=== PATIENT | female | born 1930 | race Caucasian/White ===

== ENCOUNTER → 2016-05-15 | Outpatient (CLI) | payer MEDICARE, BC ==
--- NOTE | 2016-05-15 11:44 | REP ---
CAROTID ULTRASOUND: Real-time ultrasound evaluation and duplex Doppler interrogation of the extracranial carotid vasculature is performed. There is mild plaquing and narrowing in both carotid bulbs extending into the internal and external carotid arteries. Luminal narrowing is less than 50%. There is no evidence of hemodynamically significant stenosis of either internal carotid artery. Normal flow velocities are seen. The vertebral arteries demonstrate normal direction of flow. RIGHT LEFT Peak systolic velocity ICA 73.5 cm/s 76.6 cm/s End diastolic velocity ICA 19.4 cm/s 25.0 cm/s Peak systolic velocity CCA 79 cm/s 74.6 cm/s Peak systolic velocity ECA 113.4 cm/s 74.5 cm/s ICA/CCA ratio 0.93 1.03 IMPRESSION: Bilateral luminal narrowing of the internal carotid arteries less than 50%. No evidence of hemodynamically significant stenosis. Essentially no change when compared to the prior study of 05/13/2015. Signed by Marty Campbell MD 05/15/2016 11:35 A
== END ==
LOC: M RAD 10:46
PROVIDERS: ATTEND Surgery Vascular Surgery
DX: I65.23 Occlusion and stenosis of bilateral carotid arteries (principal)

== ENCOUNTER → 2017-08-09 | Outpatient (REF) | payer MEDICARE, BC ==
[2017-08-09 18:07] LABS: ERYTHROCYTE SEDIMENTATION RATE 26 mm/hr (0-42)
[2017-08-09 18:31] LABS: FREE T4 1.08 NG/DL (0.76-1.46); RHEUMATOID FACTOR QUANT < 10.0 IU/ML (<15.0); TOTAL PROTEIN 6.8 GM/DL (6.4-8.2)
[2017-08-09 19:00] LABS: FOLATE 22.2 NG/ML; VITAMIN B12 LEVEL 399 PG/ML
[2017-08-09 19:18] LABS: ESTIMATED AVERAGE GLUCOSE 120 MG/DL (60-110); HEMOGLOBIN A1c 5.8 %
[2017-08-13 11:03] LABS: ALBUMIN 4.08 GM/DL (3.29-5.55); ALPHA-1-GLOBULIN % 5.5 % (2.9-4.9); ALPHA-1-GLOBULINS 0.37 GM/DL (0.17-0.41); ALPHA-2-GLOBULINS 0.93 GM/DL (0.42-0.99); ALPHA-2-GLOBULINS % 13.7 % (7.1-11.8); BETA-1-GLOBULINS 0.48 GM/DL (0.28-0.60); BETA-1-GLOBULINS % 7.1 % (4.7-7.2); BETA-2-GLOBULINS 0.36 GM/DL (0.19-0.55); BETA-2-GLOBULINS % 5.3 % (3.2-6.5); GAMMA GLOBULIN % 8.4 % (11.1-18.8); GAMMA GLOBULINS 0.57 GM/DL (0.65-1.58)
[2017-08-14 09:06] LABS: DRVV SCREEN 38.3 SEC
[2017-08-14 09:07] LABS: PTT LUPUS TYPE ANTICOAG SCREEN 0.9 (0-1.2)
[2017-08-16 00:07] LABS: ANTINUCLEAR ANTIBODIES DIRECT Negative (Negative); VITAMIN B1 LEVEL WHOLE BLOOD 98.8 nmol/L (66.5-200.0); VITAMIN B6,PYRIDOXAL PHOSPHATE 39.8 ug/L (2.0-32.8); VITAMIN E(ALPHA TOCOPHEROL) 17.2 mg/L (9.0-29.0)
== END ==
LOC: M LABNEURO 12:46
DX: G62.9 Polyneuropathy, unspecified (principal); Z79.899 Other long term (current) drug therapy
CPT/HCPCS: 82746

== ENCOUNTER 2018-08-08 21:27 | Emergency (ER) | payer MEDICARE, BC ==
[~2018-08-08] VITALS: Ht 170.2 cm; Wt 72.7 kg
[~2018-08-08 21:27] MED LIST: ALPR0.5T3 PO; ATOR1TAB19 PO; BENT10CA PO; HYDR-3713 PO; MONT10TA2 PO; OLOP0.1D OP; ROPI0.5T PO; TIZA2TA PO; VITA50005 PO; ZOLP5TAB PO
[2018-08-08] MEDS ORDERED: NS 500 ML IV ONE (21:45)
[2018-08-08] MEDS ORDERED: MORPHINE 4 MG/ML 1ML VIAL/SYRINGE (J2270) IV PRN (21:45)
[2018-08-08 22:26] LABS: BASO % 0.4 % (0.0-1.0); EOS # 0.1 10^3/uL (0.0-0.50); EOS % 1.2 % (0.0-3.0); HEMATOCRIT 34.8 % (36.0-47.0); HEMOGLOBIN 11.1 g/dl (12.0-15.5); LYMPH # 1.4 10^3/uL (1.5-4.5); LYMPH % 17.9 % (24.0-44.0); MEAN CORPUSCULAR HEMOGLOBIN 28.8 pg (27.0-33.0); MEAN CORPUSCULAR HGB CONC 31.9 g/dl (32.0-36.5); MEAN CORPUSCULAR VOLUME 90.4 fl (80.0-96.0); MONO # 0.7 10^3/uL (0.0-0.8); MONO % 8.7 % (0.0-5.0); NEUTROPHILS # 5.5 10^3/uL (1.8-7.7); NEUTROPHILS % 71.2 % (36.0-66.0); PLATELET COUNT, AUTOMATED 190 10^3/uL (150-450); RED BLOOD COUNT 3.85 10^6/uL (4.00-5.40); WHITE BLOOD COUNT 7.7 10^3/uL (4.0-10.0)
[2018-08-08 22:37] LABS: INR 0.99; PROTHROMBIN TIME 13.2 SECONDS (12.1-14.4)
[2018-08-08 22:38] LABS: PARTIAL THROMBOPLASTIN TIME 23.7 SECONDS (25.4-37.6)
--- NOTE | 2018-08-08 22:39 | REPVR ---
EXAM: CT Head Without Contrast EXAM DATE/TIME: 08/08/2018 9:55 PM CLINICAL HISTORY: 88 years old, female; Injury or trauma; Fall; Initial encounter; Blunt trauma (contusions or hematomas); Consciousness not specified TECHNIQUE: Imaging protocol: Axial computed tomography images of the head/brain without contrast. Radiation optimization: All CT scans at this facility use at least one of these dose optimization techniques: automated exposure control; mA and/or kV adjustment per patient size (includes targeted exams where dose is matched to clinical indication); or iterative reconstruction. COMPARISON: No relevant prior studies available. FINDINGS: Brain: There is no acute intracranial abnormality. Mild prominence of ventricles and sulci representing volume loss. Mild small vessel ischemic changes are seen. There is no mass, midline shift, or mass effect. Campbell-white matter differentiation is preserved. There is no evidence of hemorrhage. There is no extra-axial fluid collection. Basal cisterns are patent. Ventricles: See Brain Finding. Bones/joints: The visualized osseous structures are unremarkable. Sinuses: Visualized sinuses are clear. Mastoid air cells: Mastoid air cells are clear. Soft tissues: Unremarkable. IMPRESSION: 1. Mild volume loss and small vessel ischemic changes. . 2. No acute intracranial abnormality. Electronically signed by: Linda Regalado On 08/08/2018 22:38:59 PM
--- NOTE | 2018-08-08 22:43 | REPVR ---
EXAM: CT Cervical Spine Without Contrast EXAM DATE/TIME: 08/08/2018 9:55 PM CLINICAL HISTORY: 88 years old, female; Injury or trauma; Fall; Initial encounter; Blunt trauma TECHNIQUE: Imaging protocol: Axial computed tomography images of the cervical spine without contrast. Coronal and sagittal reformatted images were created and reviewed. Radiation optimization: All CT scans at this facility use at least one of these dose optimization techniques: automated exposure control; mA and/or kV adjustment per patient size (includes targeted exams where dose is matched to clinical indication); or iterative reconstruction. COMPARISON: CT Spine,cervical w/o contrast 08/20/2017 6:23 AM FINDINGS: Vertebrae: No acute fracture. Normal alignment. 5.1 mm round sclerotic focus in the C6 and T1 vertebral study. Mild DJD. Diffuse demineralization of the bones. Discs/Spinal canal/Neural foramina: No spinal stenosis. No neural foraminal narrowing. Soft tissues: Unremarkable. Lungs: Lung apices are normal. IMPRESSION: No acute findings. Electronically signed by: Linda Regalado On 08/08/2018 22:42:42 PM
--- NOTE | 2018-08-08 22:46 | REPVR ---
EXAM: CT Maxillofacial Without Contrast EXAM DATE/TIME: 08/08/2018 9:55 PM CLINICAL HISTORY: 88 years old, female; Injury or trauma; Fall; Initial encounter; Blunt trauma (contusions or hematomas); Forehead; Additional info: Fall, facial pain TECHNIQUE: Imaging protocol: Axial computed tomography images of the face without intravenous contrast. Coronal and sagittal reformatted images were created and reviewed. Radiation optimization: All CT scans at this facility use at least one of these dose optimization techniques: automated exposure control; mA and/or kV adjustment per patient size (includes targeted exams where dose is matched to clinical indication); or iterative reconstruction. COMPARISON: MRI ORBIT FACE NECK W/O FOLL W 08/07/2014 3:05 PM FINDINGS: Orbits: No acute intraorbital abnormality. Globes are unremarkable. Sinuses: Normal. No air-fluid levels. Bones/joints: Nondisplaced fracture of the right zygomatic arch, without any soft tissue swelling, age-indeterminate likely old. Further evaluation with point of tenderness is recommended. Soft tissues: No significant facial soft tissue swelling. IMPRESSION: Nondisplaced fracture of the right zygomatic arch, without any soft tissue swelling, age-indeterminate likely old. Further evaluation with point of tenderness is recommended. Electronically signed by: Linda Regalado On 08/08/2018 22:46:24 PM
[2018-08-08 22:53] LABS: BLOOD UREA NITROGEN 18 MG/DL (7-18); CALCIUM LEVEL 7.9 MG/DL (8.8-10.2); CARBON DIOXIDE LEVEL 32 MEQ/L (21-32); CHLORIDE LEVEL 104 MEQ/L (98-107); CPK CREATINE PHOSPHOKINASE 108 U/L (26-192); GLOMERULAR FILTRATION RATE > 60.0 (>32); GLUCOSE, FASTING 100 MG/DL (70-100); MB/CK RELATIVE INDEX 1.85 (< OR =4); POTASSIUM SERUM 4.2 MEQ/L (3.5-5.1); SODIUM LEVEL 140 MEQ/L (136-145); TROPONIN I < 0.02 NG/ML (< 0.10)
[2018-08-09] MEDS ORDERED: LIDOCAINE 1% MDV 20ML VIAL SC ONE (00:30)
[2018-08-09] MEDS ORDERED: ACETAMINOPHEN TAB 650MG DOSE (2X325MG) PO ONE (02:00)
[2018-08-09] MEDS ORDERED: IBUPROFEN 600 MG TAB PO ONE (02:00)
[2018-08-09 02:35] VITALS: BP 128/80
--- NOTE | 2018-08-09 08:55 | REP ---
Left wrist: Two views. History: Post reduction. Findings: AP and lateral views of the left wrist obtained through plaster splint material demonstrate improved alignment of the comminuted distal radial and ulnar fractures. There is dorsal subluxation of the hand and wrist at the level of the proximal intercarpal row, question intercarpal subluxation. No definite fracture. Electronically Signed by Gerald Copeland MD 08/09/2018 09:27 A
--- NOTE | 2018-08-09 09:02 | REP ---
Left humerus: Two views. History: Injury in a fall. Findings: The two views presented are both AP radiographs and only one of these includes the shoulder and the other a portion of the elbow. There is evidence of an impacted fracture of the proximal humerus on the left although this may be old. It is less than optimally seen. 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 Osteoporosis is noted. No other evidence of fractures seen. There is soft tissue fullness in the hilus of the lung on the left. Impression: Osteoporosis. Question old fracture of the proximal humerus. Recommend left shoulder series. Fullness in the left hilus. Recommend chest x-ray. Electronically Signed by Gerald Copeland MD 08/09/2018 09:27 A
--- NOTE | 2018-08-09 09:03 | REP ---
Left forearm: Three views. History: Injury in a fall. Findings: There is diffuse osteoporosis. Comminuted impacted and somewhat displaced distal radial and ulnar metaphyseal fractures are noted. There is dorsal displacement, slight override, and apex volar angulation. There is also dorsal subluxation of the middle carpal row relative to the proximal row on the lateral radiograph. It is not clear whether this is chronic or acute. No carpal fracture or metacarpal fracture is appreciated. This may be a chronic finding. Impression: Comminuted impacted and displaced distal radial and distal ulnar metaphyseal fractures. Intercarpal subluxation may be chronic. Osteoporosis. Electronically Signed by Gerald Copeland MD 08/09/2018 09:27 A
--- NOTE | 2018-08-09 09:04 | REP ---
LEFT HIP, AP PELVIS, FOUR VIEWS: HISTORY: Fall. The patient is status post right total hip replacement. There is no acute fracture or dislocation. There is mild narrowing of the left hip joint space with associated sclerosis. IMPRESSION: There is no acute fracture or dislocation. Electronically Signed by Duane Sigala MD 08/09/2018 09:17 A
--- NOTE | 2018-08-09 15:34 | ED PDOC ---
Post-Departure Follow-Up dr patterson and [facility] - ortho faxed left humerus, left radius to fu on reports. Teodoro Padilla MD Aug 09, 2018 15:34
--- NOTE | 2018-08-09 15:35 | ED PDOC ---
Post-Departure Follow-Up certified letter sent to pt r formal humeral xray - ? lung mass? needs fu gabg Teodoro Herrmann MD Aug 09, 2018 15:35
--- NOTE | 2018-08-09 18:11 | CR ---
DATE OF CONSULTATION: 08/09/2018 CONSULTING PHYSICIAN: Dr. Darrel Velazquez REASON CONSULTATION: Left wrist fracture. CHIEF COMPLAINT: Left wrist pain. HISTORY OF PRESENT ILLNESS: Corry Castelan is an 88-year-old [id number] female who sustained a mechanical fall to an outstretched left upper extremity earlier today, resulting in immediate pain and deformity about the left wrist. She was brought to the emergency department and found to have a displaced distal radius and ulna fracture, and orthopedics was consulted for reduction. The patient denied any antecedent chest pain, shortness of breath, dizziness, or headaches prior to her fall. She states that she tripped while walking in her home. She lives in a long-term; therefore, is not independent in all of her activities of daily living (ADLs). She denies any associated numbness, tingling, or burning sensations about her left upper extremity and no other complaints. PAST MEDICAL HISTORY: Significant for: 1. Dementia/ 2. Chronic obstructive pulmonary disease (COPD). 3. Vitamin D deficiency. 4. Hypercholesterolemia. MEDICATIONS: [place], alprazolam, atorvastatin, Bentyl, vitamin D, montelukast, olopatadine eyedorps, ropinirole, tizanidine, and zolpidem. ALLERGIES: AMOXICILLIN, CLARITHROMYCIN, DOXYCYCLINE, CYMBALTA, GABAPENTIN, and TRAMADOL. PAST SURGICAL HISTORY: Significant for: 1. Left total hip arthroplasty. 2. Hysterectomy. 3. Cholecystectomy. 4. Appendectomy. 5. Bilateral carotid endarterectomy. FAMILY HISTORY: Noncontributory. SOCIAL HISTORY: Patient is a nonsmoker. She lives in a long-term in [place]. She does not drink or use illicit drugs. REVIEW OF SYSTEMS: A 14-point review of systems was reviewed and unremarkable. PHYSICAL EXAMINATION: VITAL SIGNS: Temperature 98.3, heart rate 77, blood pressure 147/67, respiratory rate 16, pulse oximetry 95% on room air. GENERAL: This is a well-nourished female. Appears stated age in no acute distress. NEUROLOGIC: She is awake, alert, and oriented to person, place, and time. She has she has intact sensory and motor function in her left upper extremity radial, median, ulnar, and posterior interosseous nerve (PIN) distributions . CARDIOVASCULAR: She has 2+ radial pulse and brisk capillary refill in all digits of the left upper extremity. MUSCULOSKELETAL: Focused physical exam of the left upper extremity demonstrates obvious deformity about the left wrist. No open wounds or abrasions. Distal radius with significant dorsal displacement of the distal radius. She is able to independently flex and extend all of her digits. There is no wrist motion secondary to pain and deformity. She has no associated elbow tenderness. She is maximally tender about the distal aspect of the radius and ulna. RADIOGRAPHY: Plain radiographs demonstrate a displaced comminuted fracture of the metadiaphysis of the distal radius and metaphysis of the ulna with significant apex volar angulation, greater than 40 degrees. ASSESSMENT: This is an 88-year-old female with a significantly displaced distal radius and ulna fracture. PLAN: I discussed the patient the nature of her injury and the unstable nature of her fracture pattern and the possibility that this likely is unstable and may ultimately require surgical stabilization; however, for a temporizing measure, I recommended a closed reduction and splinting to restore length and alignment and to potentially be able to avoid operative treatment if we were able to maintain reduction; however, she has many risk factors given the degree of comminution, her osteoporosis, her age, and associated ulna fracture. The patient expressed understanding and provided written informed consent for a left wrist closed reduction and splinting. PROCEDURE NOTE: After the skin left of the wrist was carefully prepped, I injected 5 mL of 1% lidocaine into the fracture site, performing a hematoma block under mini C-arm fluoroscopic guidance for pain control. The patient was then placed into finger traps with 10 pounds of traction for approximately 10 minutes, which served to restore the length of her distal radius. I then placed the patient into a well-padded sugar-tong splint and performed a closed reduction, achieving a near-anatomic reduction of radial height and inclination with sabianist of the volar tilt to neutral. Postreduction mini C-arm fluoroscopic images demonstrated acceptable reduction. The patient tolerated the procedure well. POSTPROCEDURE PLAN: The patient will be discharged home from emergency department today. She will followup in the office next week for repeat radiographs in splint to assess for maintenance of reduction. The patient expressed understanding and agreed with the plan. All questions were answered. JUAN
--- NOTE | 2018-08-09 19:45 | ECGEPIP ---
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
--- NOTE | 2018-08-10 06:34 | ED PDOC ---
Post-Departure Follow-Up certified letter sent to pt re formal read of ct max-fac - unclear if she is luna re of zygomatic fx. also faxed to dr greene. also given to ed credit charge authorizer to contact pt Teodoro Padilla MD Aug 10, 2018 06:34
== END 2018-08-09 02:37 | disposition home or self-care (01) ==
LOC: EDBD 21:27 → M ED 21:27
DX: S52.592A Other fractures of lower end of left radius, initial encounter for closed fracture (principal); S52.692A Other fracture of lower end of left ulna, initial encounter for closed fracture; R93.7 Abnormal findings on diagnostic imaging of other parts of musculoskeletal system; W01.0XXA Fall on same level from slipping, tripping and stumbling without subsequent striking against object, initial encounter; Y92.129 Unspecified place in nursing home as the place of occurrence of the external cause; M81.0 Age-related osteoporosis without current pathological fracture; F03.90 Unspecified dementia, unspecified severity, without behavioral disturbance, psychotic disturbance, mood disturbance, and anxiety; J44.9 Chronic obstructive pulmonary disease, unspecified; E55.9 Vitamin D deficiency, unspecified; E78.5 Hyperlipidemia, unspecified; Z79.899 Other long term (current) drug therapy; Z88.0 Allergy status to penicillin; Z88.1 Allergy status to other antibiotic agents; Z88.8 Allergy status to other drugs, medicaments and biological substances; Z88.5 Allergy status to narcotic agent
CPT/HCPCS: 25605; 70450; 70486; 72125; 73060; 73090; 73100; 73502; 80048; 82550; 82553; 84484; 85025; 85610; 85730; 86850; 86900; 86901; 93005; 96374; 99284; J2270

== ENCOUNTER → 2019-01-07 | Outpatient (CLI) | payer MEDICARE, BC ==
--- NOTE | 2019-01-07 13:59 | REP ---
CT of the abdomen and pelvis without IV and oral contrast for abdominal aortic aneurysm: There are no comparisons. The proximal abdominal aorta at the diaphragm measures 2.6 cm transversely by 2.7 cm AP. The proximal abdominal aorta above the renal arteries measures tip of 4 cm transversely by 2.5 cm AP. The abdominal aorta below the renal arteries measures 1.7 cm transversely by 1.7 cm AP. The abdominal aorta above the bifurcation measures 1.7 cm transversely by 1.4 cm AP. There is callous some fine atheromatous plaque throughout the abdominal aorta. There is no abdominal aortic aneurysm. The visualized lower lung hogan demonstrate occasional curvilinear scarring but are otherwise unremarkable. Cardiac size appears upper normal. The unenhanced hepatic parenchyma is unremarkable. There are multiple hepatic calcified granulomas. There are surgical clips in the gallbladder fossa. The pancreas is unremarkable. There are calcified granulomas in the spleen, the spleen is otherwise unremarkable. The adrenals and kidneys are unremarkable. The bowel and mesentery are unremarkable. Pelvis: The appendix is unremarkable. There is a hysterectomy. The vaginal cuff and adnexa are obscured from beam hardening artifact arising from a right arthroplasty. The pelvic bowel loops are unremarkable. Impression: There is no abdominal aortic aneurysm. There is calcified atheroma throughout the abdominal aorta. Cholecystectomy and hysterectomy. Right hip arthroplasty. Electronically Signed by Marty Hughes MD 01/07/2019 01:51 P
== END ==
LOC: M RAD 10:53
PROVIDERS: ATTEND Surgery Vascular Surgery
DX: I70.0 Atherosclerosis of aorta (principal); Z90.49 Acquired absence of other specified parts of digestive tract; Z90.710 Acquired absence of both cervix and uterus; Z96.641 Presence of right artificial hip joint

== ENCOUNTER 2020-12-15 10:56 | Emergency (ER) | payer MEDICARE, BC ==
[~2020-12-15] VITALS: Ht 170.2 cm; Wt 75.0 kg
[~2020-12-15 10:56] MED LIST changes: +MONT10TA10 PO; -MONT10TA2 PO; -ROPI0.5T PO; +ROPI0.5T3 PO
[2020-12-15] MEDS ORDERED: BUSP15TA47 (11:23)
[2020-12-15] MEDS ORDERED: ALBU8.5H (11:23)
[2020-12-15] MEDS ORDERED: COLA100C5 PO (11:23)
[2020-12-15] MEDS ORDERED: PRESCAP PO (11:23)
[2020-12-15] MEDS ORDERED: SERT50TA29 (11:23)
[2020-12-15] MEDS ORDERED: HYDR-643 (11:23)
[2020-12-15] MEDS ORDERED: LIDO1PAD (11:23)
[2020-12-15] MEDS ORDERED: DICY10CA13 (11:23)
[2020-12-15] MEDS ORDERED: MOME50SP (11:23)
[2020-12-15] MEDS ORDERED: CBD OIL PO (11:23)
[2020-12-15] MEDS ORDERED: LORAPOW30 (11:23)
[2020-12-15] MEDS ORDERED: ESOM40CA35 (11:23)
[2020-12-15] MEDS ORDERED: ERGO500029 (11:23)
[2020-12-15] MEDS ORDERED: CYCL-707 (11:23)
[2020-12-15] MEDS ORDERED: SPIR1CAP (11:23)
--- NOTE | 2020-12-15 12:42 | REPVR ---
PROCEDURE INFORMATION: Exam: CT Cervical Spine Without Contrast Exam date and time: 12/15/2020 12:14 PM Age: 89 years old Clinical indication: Injury or trauma; Fall; Blunt trauma; Additional info: Fall on cement floor TECHNIQUE: Imaging protocol: Computed tomography images of the cervical spine without contrast. Radiation optimization: All CT scans at this facility use at least one of these dose optimization techniques: automated exposure control; mA and/or kV adjustment per patient size (includes targeted exams where dose is matched to clinical indication); or iterative reconstruction. COMPARISON: CT Spine,cervical w/o contrast 08/08/2018 9:43 PM FINDINGS: Bones/joints: No acute fracture. Normal alignment. There is a stable dense focus within the C6 body. Discs/Spinal canal/Neural foramina: No significant disc protrusion. There is multilevel facet hypertrophy. No severe spinal canal stenosis. No significant neural foraminal narrowing. Thyroid: The thyroid gland is heterogeneous. Lungs: Lung apices are normal. Soft tissues: Unremarkable. IMPRESSION: No acute fracture. Electronically signed by: Christen Mckinley On 12/15/2020 12:42:11 PM
--- NOTE | 2020-12-15 12:43 | REPVR ---
PROCEDURE INFORMATION: Exam: CT Head Without Contrast Exam date and time: 12/15/2020 12:14 PM Age: 89 years old Clinical indication: Injury or trauma; Fall; Blunt trauma (contusions or hematomas); Additional info: Fall on cement floor TECHNIQUE: Imaging protocol: Computed tomography of the head without contrast. Radiation optimization: All CT scans at this facility use at least one of these dose optimization techniques: automated exposure control; mA and/or kV adjustment per patient size (includes targeted exams where dose is matched to clinical indication); or iterative reconstruction. COMPARISON: CT Head without contrast 08/08/2018 9:43 PM FINDINGS: Brain: There is no acute intracranial hemorrhage or mass effect. Mild to moderate diffuse volume loss is within the range of normal for patient age. There are small vessel ischemic changes within the periventricular and subcortical white matter, but the normal tesfaye/white matter delineation is maintained. Cerebral ventricles: No ventriculomegaly. Paranasal sinuses: Visualized sinuses are unremarkable. No fluid levels. Mastoid air cells: Visualized mastoid air cells are well aerated. Bones/joints: Unremarkable. No acute fracture. Soft tissues: Unremarkable. IMPRESSION: No acute hemorrhage or calvarial fracture. Electronically signed by: Christen Mckinley On 12/15/2020 12:43:26 PM
--- NOTE | 2020-12-15 12:46 | REP ---
INDICATION: fall on cement floor. COMPARISON: Comparison left shoulder radiographs August 08, 2018. TECHNIQUE: Three views of the left shoulder are provided FINDINGS: . There is diffuse osteopenia. The left glenohumeral and acromioclavicular joints are normally aligned. No acute fracture or subluxation is seen. Mild osteoarthritic hypertrophy is seen at the AC joint. There is a surgical clip in the soft tissues of the neck on the left. The visualized left hemithorax structures are unremarkable. IMPRESSION: No traumatic abnormality noted. Diffuse osteopenia. Mild osteoarthritis at the AC joint. <Electronically signed by Ozzie Copeland > 12/15/20 [id number]
--- NOTE | 2020-12-15 12:48 | REP ---
INDICATION: fall on cement floor. COMPARISON: Comparison left wrist radiographs are from August 09, 2018. TECHNIQUE: Four views of the left wrist. FINDINGS: There is a acute obliquely oriented fracture through the distal radial diametaphyseal junction. Old posttraumatic deformity is seen in the distal radial metaphysis. There is also an acute fracture of the distal ulna. There appears to be old posttraumatic deformity of the distal ulna as well. There is associated soft tissue swelling. Diffuse osteoporosis is noted. There is osteoarthritis in the middle carpal row and there is partial collapse of the carpus again seen unchanged. This is degenerative. IMPRESSION: Complex findings with acute fractures of the distal radius and distal ulna. Old posttraumatic deformity is seen of the distal radius and ulna as well. There is degenerative change at the wrist with degenerative collapse of the proximal carpal row diffuse osteopenia. <Electronically signed by Ozzie Copeland > 12/15/20 [id number]
[2020-12-15] MEDS ORDERED: MORPHINE 2 MG/ML 1ML VIAL (J2270) IV ONE ×2 (13:45→15:45)
[2020-12-15] MEDS ORDERED: BOOSTRIX/ADACEL VACCINE (DIPHTH/PERTUSS/ACELL/TETANUS) 0.5ML SYR IM ONE (13:45)
[2020-12-15] MEDS ORDERED: LIDOCAINE 1% MDV 20ML VIAL INFIL ONE (13:45)
[2020-12-15] MEDS ORDERED: ONDANSETRON 4MG/2ML VIAL IV ONE (13:45)
--- NOTE | 2020-12-15 14:14 | REPVR ---
PROCEDURE INFORMATION: Exam: CT Maxillofacial Without Contrast Exam date and time: 12/15/2020 2:00 PM Age: 89 years old Clinical indication: Injury or trauma; Fall; Blunt trauma (contusions or hematomas); Ocular (eye or eyeball); Left; Additional info: Fall, lac L eyebrow TECHNIQUE: Imaging protocol: Computed tomography images of the face without contrast. Radiation optimization: All CT scans at this facility use at least one of these dose optimization techniques: automated exposure control; mA and/or kV adjustment per patient size (includes targeted exams where dose is matched to clinical indication); or iterative reconstruction. COMPARISON: CT Maxilofacial w/out contrast 08/08/2018 9:43 PM FINDINGS: Orbital cavity: There have been bilateral intraocular lens replacements likely related to cataract surgery. There is no exophthalmos. No retrobulbar hematoma or mass. Bones/joints: No evidence of acute fracture. Paranasal sinuses: There is minimal mucosal thickening in ethmoid and sphenoid sinuses and in right sphenoid ethmoidal recess. Soft tissues: There is laceration along the lateral superior aspect of the left orbit. IMPRESSION: No evidence of acute fracture. Electronically signed by: Yecenia Pak On 12/15/2020 14:14:12 PM
[2020-12-15 14:30] LABS: BASO % 0.3 % (0.0-1.0); EOS % 0.1 % (0.0-3.0); HEMATOCRIT 38.4 % (36.0-47.0); HEMOGLOBIN 11.9 g/dl (12.0-15.5); LYMPH # 0.5 10^3/uL (1.5-5.0); LYMPH % 7.4 % (24.0-44.0); MEAN CORPUSCULAR HEMOGLOBIN 27.7 pg (27.0-33.0); MEAN CORPUSCULAR VOLUME 89.5 fl (80.0-96.0); MONO # 0.4 10^3/uL (0.0-0.8); NEUTROPHILS # 6.2 10^3/uL (1.5-8.5); NEUTROPHILS % 85.6 % (36.0-66.0); PLATELET COUNT, AUTOMATED 201 10^3/uL (150-450); RED BLOOD COUNT 4.29 10^6/uL (4.00-5.40); WHITE BLOOD COUNT 7.2 10^3/uL (4.0-10.0)
[2020-12-15 14:55] LABS: ALBUMIN 3.6 GM/DL (3.2-5.2); ALT/SGPT 23 U/L (12-78); BILIRUBIN,DIRECT 0.1 MG/DL (0.0-0.2); BILIRUBIN,TOTAL 0.3 MG/DL (0.2-1.0); BLOOD UREA NITROGEN 12 MG/DL (7-18); CALCIUM LEVEL 8.5 MG/DL (8.8-10.2); CARBON DIOXIDE LEVEL 28 MEQ/L (21-32); CHLORIDE LEVEL 107 MEQ/L (98-107); CPK CREATINE PHOSPHOKINASE 183 U/L (26-192); CREATININE FOR GFR 0.68 MG/DL (0.55-1.30); GLOMERULAR FILTRATION RATE > 60.0 (>32); GLUCOSE, FASTING 103 MG/DL (70-100); LIPASE 90 U/L (73-393); MB/CK RELATIVE INDEX 1.64 (< OR =4); POTASSIUM SERUM 3.9 MEQ/L (3.5-5.1); SODIUM LEVEL 140 MEQ/L (136-145); TOTAL PROTEIN 6.6 GM/DL (6.4-8.2); TROPONIN I < 0.02 NG/ML (< 0.10)
--- NOTE | 2020-12-15 15:23 | REP ---
INDICATION: fall, ttp. COMPARISON: None. TECHNIQUE: Four views of the left knee, sunrise view not included.. FINDINGS: Four views of the left knee demonstrate diffuse osteopenia. Vascular calcifications noted. No fracture or subluxation is seen. No opaque foreign body noted. IMPRESSION: No fracture seen. Diffuse osteopenia. Vascular calcification. <Electronically signed by Ozzie Copeland > 12/15/20 [id number]
--- NOTE | 2020-12-15 15:29 | REP ---
INDICATION: Abdominal Pain. COMPARISON: None. TECHNIQUE: Frontal view chest, cross-table lateral in supine films abdomen and pelvis. The study is submitted for interpretation at 3:13 p.m.. FINDINGS: There is no evidence of free intraperitoneal air. There appear to be a few mildly dilated small bowel loops in the mid abdomen in a nonspecific pattern. Scattered metallic clips are present. There are mild degenerative changes of the spine. There is metallic prosthesis of the right hip. No infiltrate is seen in either lung. The heart is not enlarged and there is mild atherosclerotic calcification of the thoracic aorta. IMPRESSION: No evidence of free intraperitoneal air. Mildly dilated small bowel loops in the mid abdomen with a nonspecific bowel gas pattern. <Electronically signed by Marty Campbell > 12/15/20 [id number]
--- NOTE | 2020-12-15 16:28 | CR.PDOC ---
General Date of Consultation: Dec 15, 2020 Referring Provider: JULIANNA MILLER PA-C Consultation REASON FOR CONSULTATION/CHIEF COMPLAINT: L wrist pain s/p fall. HISTORY OF PRESENT ILLNESS: 89 yo F s/p fall and landed on L wrist. + head trauma, no LOC. Unable to range wrist and hand and BIBA for evaluation. ALLERGIES: Please see below. HOME MEDICATIONS: Please see below. PAST MEDICAL HISTORY: 1. HTN. 2. Previous L wrist Fx PAST SURGICAL HISTORY: N/A SOCIAL HISTORY: Marital status and/or living arrangements: Lives alone, sister local. Children: x 3. Employment: Tobacco use: ETOH: Illicit drug use: IV drug use: Other relevant social factors: REVIEW OF SYSTEMS: CONSTITUTIONAL: HEENT: Head laceration CARDIOVASCULAR: . RESPIRATORY: . GENITOURINARY: . MUSCULOSKELETAL: L wrist pain GASTROINTESTINAL: . SKIN: . NEUROLOGICAL: . PSYCHIATRIC: . ENDOCRINE: . HEMATOLOGIC/LYMPHATIC: . ALLERGIC/IMMUNOLOGIC: . PHYSICAL EXAMINATION: VITAL SIGNS: Please see below. GENERAL APPEARANCE: AAOx3 HEENT: . RESPIRATORY: . CARDIOVASCULAR: . ABDOMEN: . EXTREMITIES: L wrist - + deformity to L wrist, limited ROM secondary to pain. NEUROLOGICAL: AIN/PIN/U intact PSYCHIATRIC: . LABORATORY DATA: Please see below. ASSESSMENT/PLAN: 1. R DR ulrich Fx --> closed reduction in ED NWB in sling PO analgesia f/u 10-14 days in office Vital Signs/I&O Vital Signs Date Time Temp Pulse Resp B/P (MAP) Pulse Ox O2 Delivery O2 Flow Rate FiO2 12/15/20 15:49 97.9 84 18 184/79 95 Room Air Laboratory Data Labs 24H Laboratory Tests 2 12/15/20 13:54: Immature Granulocyte % (Auto) 0.6, Neutrophils (%) (Auto) 85.6H, Lymphocytes (%) (Auto) 7.4L, Monocytes (%) (Auto) 6.0, Eosinophils (%) (Auto) 0.1, Basophils (%) (Auto) 0.3, Neutrophils # (Auto) 6.2, Lymphocytes # (Auto) 0.5L, Monocytes # (Auto) 0.4, Eosinophils # (Auto) 0.0, Basophils # (Auto) 0.0, Nucleated Red Blo od Cells % (auto) 0.0, Anion Gap 5L, Glomerular Filtration Rate > 60.0, Calcium Level 8.5L, Total Bilirubin 0.3, Direct Bilirubin 0.1, Aspartate Amino Transf (AST/SGOT) 17, Alanine Aminotransferase (ALT/SGPT) 23, Alkaline Phosphatase 103, Total Creatine Kinase 183, Creatine Kinase MB 3.0, Creatine Kinase MB Relative Index 1.64, Troponin I < 0.02, Total Protein 6.6, Albumin 3.6, Albumin/Globulin Ratio 1.2, Lipase 90 CBC/BMP Laboratory Tests 12/15/20 13:54 Allergies Coded Allergies: amoxicillin (Verified Allergy, Unknown, 08/08/18) clarithromycin (Verified Allergy, Unknown, 08/08/18) clavulanic acid (Verified Allergy, Unknown, 08/08/18) doxycycline (Verified Allergy, Unknown, 08/08/18) duloxetine (Verified Allergy, Unknown, 08/08/18) gabapentin (Verified Allergy, Unknown, 08/08/18) tramadol (Verified Allergy, Unknown, 08/08/18) Home Medications Scheduled Atorvastatin Calcium (Atorvastatin Calcium) 10 Mg Tab, 10 MG PO DAILY, (Reported) Cannabidiol (Cbd Oil) Btl, 1 TAB PO DAILY, (Reported) Docusate Sodium (Colace) 100 Mg Capsule, 200 MG PO DAILY, (Reported) Ergocalciferol (Vitamin D2) (Vitamin D2) 50,000 Unit Cap, 50,000 UNIT PO Q2WK, (Reported) Montelukast Sodium (Montelukast Sodium) 10 Mg Tab, 10 MG PO DAILY, (Reported) Vit A/Vit C/Vit E/Zinc/Copper (Preservision Areds Softgel) 1 Each Capsule, 1 CAP PO DAILY, (Reported) Miscellaneous Medications Albuterol Sulfate (Albuterol Sulfate Hfa) 8.5 Gm Hfa.aer.ad, (Reported) Buspirone HCl (Buspirone HCl) 15 Mg Tablet, (Reported) Cyclobenzaprine HCl (Cyclobenzaprine HCl) 10 Mg Tablet, (Reported) Dicyclomine HCl (Dicyclomine HCl) 10 Mg Capsule, (Reported) Ergocalciferol (Vitamin D2) (Vitamin D2) 50,000 Units Cap, (Reported) Esomeprazole Magnesium (Esomeprazole Magnesium Dr) 40 Mg Capsule.dr, (Reported) Hydroxyzine HCl (Hydroxyzine HCl) 10 Mg Tablet, (Reported) Lidocaine (Lidocaine) 5% Adh..patch, (Reported) Mometasone Furoate Monohydrate (Nasonex) 17 Gm [place].pump, 1 SPRAY NA, (Reported) Sertraline HCl (Sertraline HCl) 50 Mg Tablet, (Reported) Tiotropium [place] (Spiriva) 18 Mcg Cap.w.dev, (Reported) [Lorazepam] , (Reported) AUREA BALDERAS MD Dec 15, 2020 16:28
--- NOTE | 2020-12-15 17:01 | REP ---
INDICATION: post reduction by orthopedics COMPARISON: 12/15/2020 12:32 p.m. TECHNIQUE: AP and lateral portable left wrist. FINDINGS: Fracture distal radius is again noted with slight posterior and lateral displacement, appearing improved. Fracture of distal ulna also demonstrates improved alignment. There is an overlying splint which obscures underlying osseous detail. IMPRESSION: Distal radial and ulnar fractures as above. <Electronically signed by Marty Campbell > 12/15/20 [id number]
[2020-12-15 18:26] VITALS: BP 172/76
== END 2020-12-15 18:35 | disposition home or self-care (01) ==
LOC: EDBD 10:56 → M ED 10:56
DX: S52.502A Unspecified fracture of the lower end of left radius, initial encounter for closed fracture (principal); S52.602A Unspecified fracture of lower end of left ulna, initial encounter for closed fracture; S01.81XA Laceration without foreign body of other part of head, initial encounter; W01.198A Fall on same level from slipping, tripping and stumbling with subsequent striking against other object, initial encounter; Y92.099 Unspecified place in other non-institutional residence as the place of occurrence of the external cause; Y93.9 Activity, unspecified; Y99.9 Unspecified external cause status; F03.90 Unspecified dementia, unspecified severity, without behavioral disturbance, psychotic disturbance, mood disturbance, and anxiety; J45.909 Unspecified asthma, uncomplicated; J44.9 Chronic obstructive pulmonary disease, unspecified; K58.9 Irritable bowel syndrome, unspecified; E55.9 Vitamin D deficiency, unspecified; E78.5 Hyperlipidemia, unspecified; R25.1 Tremor, unspecified; F41.9 Anxiety disorder, unspecified; F32.9 Major depressive disorder, single episode, unspecified; M85.88 Other specified disorders of bone density and structure, other site; I70.292 Other atherosclerosis of native arteries of extremities, left leg; Z87.81 Personal history of (healed) traumatic fracture; M85.812 Other specified disorders of bone density and structure, left shoulder; Z79.899 Other long term (current) drug therapy; Z88.0 Allergy status to penicillin; Z88.1 Allergy status to other antibiotic agents; Z88.8 Allergy status to other drugs, medicaments and biological substances
CPT/HCPCS: 12011; 25600; 70450; 70486; 72125; 73030; 73100; 73110; 73564; 74021; 80048; 80076; 82550; 82553; 83690; 84484; 85025; 90471; 90715; 94760; 96374; 96375; 96376; 99284; J2270; J2405

== ENCOUNTER 2020-12-21 11:23 | Emergency (ER) | payer MEDICARE, BC ==
[~2020-12-21] VITALS: Ht 170.2 cm; Wt 78.5 kg
[~2020-12-21 11:23] MED LIST changes: +ALBU8.5H; +BUSP15TA47; +CBD OIL PO; +COLA100C5 PO; +CYCL-707; +DICY10CA13; +ERGO500029; +ESOM40CA35; +HYDR-643; +LIDO1PAD; +LORAPOW30; +MOME50SP; +PRESCAP PO; +SERT50TA29; +SPIR1CAP
[2020-12-21] MEDS ORDERED: ACETAMINOPH W/CODEINE #3 TAB UD PO ONE (15:15)
--- NOTE | 2020-12-21 16:03 | REP ---
INDICATION: severe pain, recent distal radius/ulna fx, deformity COMPARISON: Wrist 12/15/2020. TECHNIQUE: AP and lateral left forearm. FINDINGS: Forms seen in a cast which obscures underlying osseous detail. Again noted are fractures of the distal radius and ulna which appear unchanged in alignment and position. No gross new fracture is seen there is no dislocation. IMPRESSION: Distal radial and ulnar fractures are grossly stable, seen through cast. <Electronically signed by Marty Campbell > 12/21/20 [id number]
[2020-12-21] MEDS ORDERED: ACET1TAB16 PO (16:46)
[2020-12-21 17:05] VITALS: BP 168/91
== END 2020-12-21 17:21 | disposition home or self-care (01) ==
LOC: M ED 11:23
DX: Z46.89 Encounter for fitting and adjustment of other specified devices (principal); S52.502D Unspecified fracture of the lower end of left radius, subsequent encounter for closed fracture with routine healing; S52.602D Unspecified fracture of lower end of left ulna, subsequent encounter for closed fracture with routine healing; W19.XXXD Unspecified fall, subsequent encounter; Y92.9 Unspecified place or not applicable; Y93.9 Activity, unspecified; Y99.9 Unspecified external cause status; I25.10 Atherosclerotic heart disease of native coronary artery without angina pectoris; J45.909 Unspecified asthma, uncomplicated; K21.9 Gastro-esophageal reflux disease without esophagitis; F41.9 Anxiety disorder, unspecified; F32.9 Major depressive disorder, single episode, unspecified; I95.9 Hypotension, unspecified; Z79.899 Other long term (current) drug therapy; Z88.0 Allergy status to penicillin; Z88.1 Allergy status to other antibiotic agents; Z88.5 Allergy status to narcotic agent; Z88.8 Allergy status to other drugs, medicaments and biological substances

== ENCOUNTER → 2020-12-30 | Outpatient (CLI) | payer MEDICARE, BC ==
[~2020-12-30] MED LIST changes: +ACET1TAB16 PO
--- NOTE | 2020-12-30 14:21 | REP ---
INDICATION: LT WRIST FX FOLLOW-UP. COMPARISON: 12/15/2020 TECHNIQUE: Three views FINDINGS: Once again, the overlying cast obscures the bony detail. There is no significant change in the appearance of the previously described fractures. Additional fractures cannot be ruled out secondary to the cast. IMPRESSION: No significant change. <Electronically signed by Andrew Lujan > 12/30/20 [id number]
== END ==
LOC: M SOG 10:49
PROVIDERS: ATTEND Orthopaedic Surgery
DX: S62.102A Fracture of unspecified carpal bone, left wrist, initial encounter for closed fracture (principal); X58.XXXA Exposure to other specified factors, initial encounter; Y92.9 Unspecified place or not applicable; Y93.9 Activity, unspecified; Y99.9 Unspecified external cause status

== ENCOUNTER → 2021-01-06 | Outpatient (CLI) | payer MEDICARE, BC ==
--- NOTE | 2021-01-06 12:51 | REP ---
INDICATION: LT WRIST PAIN. COMPARISON: December 30, 2020 and December 15, 2020. TECHNIQUE: Three views of the left wrist are provided. FINDINGS: Three views of the left wrist demonstrate healing callus formation at the site of the oblique fracture of the distal radius. There is some residual dorsal displacement. No angulation. There is a comminuted impacted fracture of the distal ulna at the base of the ulnar styloid. There is some callus formation here as well. There is diffuse osteoporosis. 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 IMPRESSION: Healing distal ulnar and radial fractures as above. <Electronically signed by Ozzie Copeland > 01/06/21 [id number]
== END ==
LOC: M SOG 11:52
PROVIDERS: ATTEND Student in an Organized Health Care Education/Training Program
DX: M25.532 Pain in left wrist (principal); S52.612D Displaced fracture of left ulna styloid process, subsequent encounter for closed fracture with routine healing; X58.XXXD Exposure to other specified factors, subsequent encounter; Y92.9 Unspecified place or not applicable; Y99.9 Unspecified external cause status; Y93.9 Activity, unspecified; S52.592D Other fractures of lower end of left radius, subsequent encounter for closed fracture with routine healing

== ENCOUNTER → 2021-02-03 | Outpatient (CLI) | payer MEDICARE, BC ==
--- NOTE | 2021-02-03 12:11 | REP ---
INDICATION: ORTHOPEDIC AFTERCARE. COMPARISON: 01/06/2021 latest prior TECHNIQUE: Three views FINDINGS: Callus formation is seen obscuring the margins of the previously described fractures. This has increased compared to the prior exam. Once again, there is a rather excessive dorsal tilt to the lunate. This is unchanged. The bones are again seen to be demineralized. No acute abnormality has developed since the last exam. IMPRESSION: Healing fractures and chronic changes as described above. <Electronically signed by Andrew Lujan > 02/03/21 [id number]
== END ==
LOC: M SOG 10:02
PROVIDERS: ATTEND Student in an Organized Health Care Education/Training Program
DX: Z47.89 Encounter for other orthopedic aftercare (principal); S62.102D Fracture of unspecified carpal bone, left wrist, subsequent encounter for fracture with routine healing; X58.XXXD Exposure to other specified factors, subsequent encounter; Y92.9 Unspecified place or not applicable; Y99.9 Unspecified external cause status; Y93.9 Activity, unspecified

== ENCOUNTER → 2021-04-07 | Outpatient (CLI) | payer MEDICARE, BC ==
--- NOTE | 2021-04-07 10:22 | REP ---
INDICATION: LT WRIST FX. COMPARISON: 02/03/2021 TECHNIQUE: AP, lateral, oblique views of the left wrist FINDINGS: Age-related osteopenia and advanced degenerative changes are appreciated along with stable healed fractures of the distal radius and ulna. IMPRESSION: Healed fractures of the distal radius and ulna with stable positioning as compared to prior examination <Electronically signed by Sudheer Parikh > 04/07/21 [id number]
== END ==
LOC: M SOG 08:05
PROVIDERS: ATTEND Student in an Organized Health Care Education/Training Program
DX: Z47.89 Encounter for other orthopedic aftercare (principal); M81.0 Age-related osteoporosis without current pathological fracture; M19.042 Primary osteoarthritis, left hand

== ENCOUNTER 2021-11-18 21:12 | Emergency (ER) | payer MEDICARE, BC ==
[~2021-11-18] VITALS: Ht 170.2 cm; Wt 81.8 kg
[~2021-11-18 21:12] MED LIST changes: -ACET1TAB16 PO; +ACET300T48 PO; -MOME50SP; -MONT10TA10 PO; +MONT10TA97 PO; +NASO50SP3; -OLOP0.1D OP; +OLOP5DRO16 OP
[2021-11-18] MEDS ORDERED: MILKSUS3 PO (21:39)
[2021-11-19] MEDS ORDERED: ACETAMINOPHEN 500 MG TAB PO ONE (07:20)
[2021-11-19] MEDS ORDERED: LIDOCAINE 5% (LIDODERM) PATCH TD ONE (07:20)
[2021-11-19 07:27] VITALS: BP 150/70
[2021-11-19] MEDS ORDERED: **NOTE PATIENT COMMENT** MISC XX SCH (21:00)
== END 2021-11-19 07:48 | disposition home or self-care (01) ==
LOC: EDBD 21:12 → M ED 21:12
DX: S20.219S Contusion of unspecified front wall of thorax, sequela (principal); M25.512 Pain in left shoulder; W19.XXXA Unspecified fall, initial encounter; Y92.099 Unspecified place in other non-institutional residence as the place of occurrence of the external cause; J45.909 Unspecified asthma, uncomplicated; Z79.899 Other long term (current) drug therapy; Z88.0 Allergy status to penicillin; Z88.1 Allergy status to other antibiotic agents; Z88.5 Allergy status to narcotic agent; Z88.8 Allergy status to other drugs, medicaments and biological substances